=== PATIENT | female | born 2000 | race Hispanic/Latino ===

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

== ENCOUNTER 2021-11-03 22:04 | Emergency (ER) | payer MEDICAID ==
[~2021-11-03] VITALS: Ht 154.9 cm; Wt 60.8 kg
[2021-11-03 22:06] VITALS: BP 126/76
[2021-11-04] MEDS ORDERED: IBUP-2070 PO (00:29)
[2021-11-04] MEDS ORDERED: IBUPROFEN 600 MG TABLET PO ONE (00:30)
[2021-11-04] MEDS ORDERED: IBUPROFEN 600 MG TABLET ONE (00:58)
== END 2021-11-04 01:04 | disposition home or self-care (01) ==
LOC: EDH 22:04
DX: S92.511A Displaced fracture of proximal phalanx of right lesser toe(s), initial encounter for closed fracture (principal); W01.0XXA Fall on same level from slipping, tripping and stumbling without subsequent striking against object, initial encounter; Y93.89 Activity, other specified; Y92.89 Other specified places as the place of occurrence of the external cause; Y99.8 Other external cause status
CPT/HCPCS: 73660

== ENCOUNTER 2022-05-18 22:56 | Emergency (ER) | payer MEDICAID ==
[~2022-05-18] VITALS: Ht 154.9 cm; Wt 59.9 kg
[~2022-05-18 22:56] MED LIST: IBUP-2070 PO
[2022-05-18 22:57] VITALS: BP 114/69
[2022-05-18] MEDS ORDERED: FLUORESCEIN SODIUM 1 STRIP STRIP ONE (23:30)
[2022-05-19] MEDS ORDERED: FLUORESCEIN SODIUM 1 STRIP STRIP OP SCH
[2022-05-19] MEDS ORDERED: TETRACAINE HCL 0.5% 4 ML OPHTH SOLN OP SCH
[2022-05-19] MEDS ORDERED: ACETAZOLAMIDE SODIUM 500 MG VIAL ONE (00:01)
[2022-05-19] MEDS ORDERED: ACETAZOLAMIDE SODIUM 500 MG VIAL IV SCH (00:30)
[2022-05-19] MEDS ORDERED: ACET-66 PO (00:36)
[2022-05-19] MEDS ORDERED: MOXIOS OD (00:36)
== END 2022-05-19 01:19 | disposition home or self-care (01) ==
LOC: EDH 22:56
DX: S05.01XA Injury of conjunctiva and corneal abrasion without foreign body, right eye, initial encounter (principal); H40.20X0 Unspecified primary angle-closure glaucoma, stage unspecified; H10.9 Unspecified conjunctivitis; X58.XXXA Exposure to other specified factors, initial encounter; Y93.89 Activity, other specified; Y92.89 Other specified places as the place of occurrence of the external cause; Y99.8 Other external cause status
CPT/HCPCS: 99283; 96374; J1120

== ENCOUNTER 2023-11-02 18:46 | Emergency (ER) | payer SELFPAY ==
[~2023-11-02] VITALS: Ht 157.5 cm; Wt 59.0 kg
[~2023-11-02 18:46] MED LIST changes: +ACET-66 PO; +MOXIOS OD
[2023-11-02 19:10] LABS: RAPID GROUP A STREP negative (NEGATIVE)
[2023-11-02 19:20] LABS: COVID19 (SARS ANTIGEN RAPID) PRESUMPTIVE NEGATIVE (NEGATIVE); INFLUENZA TYPE A Negative For Type A (NEGATIVE); INFLUENZA TYPE B Negative For Type B (NEGATIVE)
[2023-11-02 19:40] LABS: ADD UA MICROSCOPIC YES; APPEARANCE,URINE CLEAR (CLEAR); BILIRUBIN,URINE NEGATIVE (NEGATIVE); COLOR,URINE LIGHT-YELLOW (YELLOW); GLUCOSE, URINE (UA) NEGATIVE (NEGATIVE); KETONES,URINE NEGATIVE (NEGATIVE); LEUKOCYTE ESTERASE ,URINE 25 Leu/uL (NEGATIVE); NITRATE,URINE NEGATIVE (NEGATIVE); OCCULT BLOOD,URINE NEGATIVE (NEGATIVE); PROTEIN,URINE NEGATIVE (NEGATIVE); UROBILINOGEN,URINE 0.2 mg/dL (0.2-1.0)
[2023-11-02 19:41] LABS: HCG,QUALITATIVE URINE NEGATIVE (NEGATIVE)
[2023-11-02 19:44] LABS: MUCUS,URINE RARE LPF (None Seen); SQUAMOUS EPITHELIAL CELL,UR FEW /HPF (0-2); WBC,URINE 0-1 /HPF (0-1)
[2023-11-02] MEDS ORDERED: IBUP-2070 PO (19:54)
[2023-11-02] MEDS ORDERED: ONDA-243 PO (19:54)
[2023-11-02 20:15] VITALS: BP 132/78; PULSE 98; RESP 20; TEMP 98.8; O2SAT 97
== END 2023-11-02 20:21 | disposition home or self-care (01) ==
LOC: EDH 18:46
DX: R51.9 Headache, unspecified (principal); R11.2 Nausea with vomiting, unspecified; Z20.822 Contact with and (suspected) exposure to COVID-19; Z79.899 Other long term (current) drug therapy
CPT/HCPCS: 81001; 81025; 87426; 87804; 87880

== ENCOUNTER 2024-06-11 18:46 | Emergency (ER) | payer BC ==
[~2024-06-11] VITALS: Ht 157.5 cm; Wt 56.2 kg
[~2024-06-11 18:46] MED LIST changes: +ONDA-243 PO
--- NOTE | 2024-06-11 21:27 | ERN ---
General Chief Complaint: Abscess Stated Complaint: SPIDER BITE,NUMBNESS Time Seen by MD: 18:50 Time Seen by Midlevel: 18:50 Source: patient History of Present Illness Initial Comments The patient is a 23-year-old female with no significant past medical history presenting to the emergency department with which she believes this is spider bite. She reports waking up yesterday and noticed a bruise to her left inner thigh today she developed both numbness and pain to her entire left body which concerned her so she decided to report to the ER for further evaluation. Allergies: Coded Allergies: No Known Drug Allergies (Unverified Allergy, Unknown, 11/03/21) Home Meds Active Scripts Cephalexin Monohydrate (Keflex) 500 Mg Cap, 500 MG PO TID for 5 Days, #15 CAP Prov:GLADIS MUNGUIA 06/11/24 Ibuprofen (Ibuprofen) 600 Mg Tablet, 600 MG PO Q6H PRN for PAIN, #30 TAB Prov:KELLI GORMAN NP 11/02/23 Ondansetron (Ondansetron Odt) 4 Mg Tab.rapdis, 4 MG PO Q6HPRN PRN for nausea, #16 TAB 0 Refills Prov:KELLI GORMAN NP 11/02/23 Acetaminophen (Acetaminophen) 500 Mg Tablet, 500 MG PO Q4PRN for 5 Days, #15 TAB Prov:FILEMON HERNANDEZ 05/19/22 Moxifloxacin HCl (Vigamox 0.5% Ophth Soln) 20 Drop/Ml Opsol, 4 DROP OD BID for 5 Days, #1 BOTTLE Prov:FILEMON HERNANDEZ 05/19/22 Ibuprofen (Ibuprofen) 600 Mg Tablet, 600 MG PO Q6H PRN for PAIN, #30 TAB 0 Refills Prov:RENATA CUELLO MD 11/04/21 Past Medical History Past Medical History: No Pertinent History Past Surgical History: None Female( History) History: Not Applicable LMP: Jun 10, 2024 ROS Dictation CONSTITUTIONAL: Negative except for HPI HEAD/FACE: Negative except for HPI EENT: Negative except for HPI RESPIRATORY: Negative except for HPI GASTROINTESTINAL/ABDOMINAL: Negative except for HPI GENITOURINARY: Negative except for HPI MUSCULOSKELETAL: Negative except for HPI INTEGUMENTARY: Negative except for HPI NEUROLOGICAL/PSYCH: Negative except for HPI HEMATOLOGIC/LYMPHATIC: Negative except for HPI All Systems Negative, Except as noted above. 13 point review of systems assessed and all negative except for above. Physical Exam Physical Exam Dictation PHYSICAL EXAM: GENERAL: alert,, awake oriented x 3 HEENT: EOMI, Sclera non icteric, moist mucosa NECK: Supple, no JVD, trachea midline LUNGS: Clear breath sounds bilaterally. No wheezes HEART: Regular rate and rhythm. Normal S1 and S2, without murmurs ABD: Abdomen soft, nontender. Bowel sounds present EXT: No clubbing or cyanosis, NEURO: Alert and oriented to person, follows commands SKIN: There is a small circular bruise to the left inner medial thigh with two small bites in the inner [place], there is no surrounding erythema, induration, or tenderness. No drainable abscess. MDM MDM: The patient is a 23-year-old female with no significant past medical his tory presenting to the emergency department with which she believes this is spider bite. She reports waking up yesterday and noticed a bruise to her left inner thigh today she developed both numbness and pain to her entire left body which concerned her so she decided to report to the ER for further evaluation. On physical examination there is a small circular bruise to the left inner medial thigh with two small bites in the inner [place], there is no surrounding erythema, induration, or tenderness. No drainable abscess. There are no signs of infection. Her vital signs are stable. Her neurological examination is unremarkable. The numbness and pain could be related to the insect bite however there are no red flag symptoms. We administered 1 L of IV fluids in the patient was discharged home on Keflex for empiric treatment. She needs to follow up with your primary care doctor. No need for emergent intervention at this time. Differential diagnosis: There are no social concerns with this patient. Prescription drug management Prescriptions will include: Keflex Medical management and examination interpretation discussions were had by me with other qualified healthcare professionals as indicated for the patient's care. ED Course Orders Procedure Category Date Status Time 0.9%Nacl 1000ml (Ns PHA 06/11/24 In Process 1000ml) 20:00 Current Medications Medications (Trade) Dose Ordered Sig/Skinny Route PRN Reason Start Time Stop Time Status Last Admin Dose Admin Sodium Chloride 1,000 ml @ 0 mls/hr ONCE IV 06/11/24 20:00 06/12/24 19:59 Vital Signs Date Time Temp Pulse Resp B/P (MAP) Pulse Ox O2 Delivery O2 Flow Rate FiO2 06/11/24 18:54 98.4 79 18 125/79 98 Room Air 0 DX & DISP Disposition: Discharge Departure Impression: Primary Impression: Insect bite of left thigh Condition: Stable Scripts Cephalexin Monohydrate (Keflex) 500 Mg Cap 500 MG PO TID for 5 Days, #15 CAP Prov: GLADIS MUNGUIA 06/11/24 Referrals: SELF,REFERRAL (PCP) Time of Disposition: 21:39 I have reviewed the case, and I agree with, Diagnosis and Plan I performed the substantive portion of the visit. I have reviewed and personally made and approve the management plan that is documented in the note by myself or the STACIE. I acknowledge for responsibility for the patient's management plan. GLADIS MUNGUIA Jun 11, 2024 21:27
[2024-06-11] MEDS ORDERED: CEPH500B PO (21:40)
[2024-06-11] MEDS: 0.9%NACL 1000ML 1,000 ML IV SCH (21:44)
[2024-06-11 22:35] VITALS: BP 122/76; PULSE 80; RESP 18; TEMP 98.2; O2SAT 100
== END 2024-06-11 22:36 | disposition home or self-care (01) ==
LOC: EDH 18:46
DX: S70.362A Insect bite (nonvenomous), left thigh, initial encounter (principal); Z79.899 Other long term (current) drug therapy; W57.XXXA Bitten or stung by nonvenomous insect and other nonvenomous arthropods, initial encounter
CPT/HCPCS: 99283